=== PATIENT | male | born 1960 | race African-American/Black ===

== ENCOUNTER 2016-08-27 07:57 | Emergency (ER) | payer BC ==
[2016-08-27 08:03] VITALS: BP 146/100; PULSE 82; TEMP 99.2; BMI 24.9
[2016-08-27] MEDS ORDERED: KETOROLAC TROMETHAMINE 60 MG/2 ML VIAL IM ONE (08:10)
[2016-08-27] MEDS ORDERED: KETOROLAC TROMETHAMINE 60 MG/2 ML VIAL ONE (08:14)
--- NOTE | 2016-08-27 08:17 | PDOC ---
History of Present Illness - General Chief Complaint: Pain, Acute Stated Complaint: LEFT 1ST TOE PAIN Time Seen by Provider: 08/27/16 08:01 History Source: Patient Exam Limitations: No Limitations - History of Present Illness Initial Comments: 08/27/16 08:10 56y M hx of htn presents with L toe pain x 3 days. Pt states it started off with mild pain but has progressed to be so painful it is difficult for him to walk. 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 Denies any new shoes/boots. pt dnies any trauma, falls, injuries. The pain is localized to the lateral/bottom aspect of the L foot at the metatarsal, he denies any fever/chills, numbness/tingling, or readiation of the pain anywhere. it is worse with walking and when you touch it. pt states he had a similar episode last year that was treated (he remembers someone mentioning gout) and thinks this may be similar episode. pt denies f/c, n/v, cp, sob, back pain. Past History - Past Medical History Allergies/Adverse Reactions: Allergies Allergy/AdvReac Type Severity Reaction Status Date / Time No Known Allergies Allergy Verified 08/27/16 07:58 Home Medications: Ambulatory Orders Amlodipine Besylate [Norvasc -] 10 mg PO DAILY 07/21/15 Naproxen [Naprosyn -] 500 mg PO BID #14 tablet 08/27/16 HTN: Yes - Psycho/Social/Smoking Cessation Hx Anxiety: No Suicidal Ideation: No Smoking History: Never smoked Have you smoked in the past 12 months: No Hx Alcohol Use: Yes Drug/Substance Use Hx: No Substance Use Type: Alcohol Review of Systems - Review of Systems Able to Perform ROS?: Yes Comments:: 08/27/16 08:14 Constitutional - no reported Fever, Chills, HEENT: no reported vision changes, sore throat Abd/GI: no reported abd pain, nausea, vomiting, Musculskelatal - +L toe pain no reported back pain, joint swelling skin - no reported bruising, erythema, rash neurological: no reported numbness, focal weakness, tingling, hematologic: no reported anemia, easy bruising, easy bleeding *Physical Exam - Vital Signs Last Vital Signs Temp Pulse Resp BP Pulse Ox 99.2 F 82 16 146/100 98 08/27/16 07:57 08/27/16 07:57 08/27/16 07:57 08/27/16 07:57 08/27/16 07:57 - Physical Exam Comments: 08/27/16 08:15 GENERAL: The patient is awake, alert, and fully oriented, Nontoxic - in no acute distress. EXTREMITIES: +mild tenderness and swelling on Metatarsal of L 1st toe, slight warmth, able to rang toe without significant tenderness, no bruising/erythema. sensation intact distally, passive rom slightl painful of toe NEUROLOGICAL: No facial assymetry, Normal speech, antalgic gait SKIN: Warm, Dry, normal turgor, ED Treatment Course - RADIOLOGY Radiology Studies Ordered: Category Date Time Status FOOT-LEFT [RAD] Stat Radiology 08/27/16 08:09 Ordered Medical Decision Making - Medical Decision Making 08/27/16 08:17 suspect gout vs trauma will obtain xray to r/o fx will give NSAIDS, PMD fu 08/27/16 08:36 xrays neative for fracture on my read will give pt alleve 500mg BID for 5 days or until sypmtoms resolve will have pt fu with dr. collier return precautions were discussed I discussed the physical exam findings, ancillary test results and final diagnoses with the patient. I answered all of the patient's questions. The patient was satisfied with the care received and felt comfortable with the discharge plan and treatment plan. The patient will call their primary care physician within 24 hours to arrange follow-up and will return to the Emergency Department with any new, persistent or worsening symptoms. *DC/Admit/Observation/Transfer Diagnosis at time of Disposition: Pain of left great toe - Discharge Dispostion Disposition: HOME Condition at time of disposition: Improved Admit: No - Referrals Referrals: Shar Collier MD [Primary Care Provider] - - Patient Instructions Printed Discharge Instructions: DI for Gout Additional Instructions: Return to the emergency department immediately with ANY new, persistent or worsening symptoms. I suspect that you're pain may be due to gout. Please take Naproxen 500mg twice daily for the next 4-5 days or until symptoms resolve. You MUST call and follow up with your doctor tomorrow for further evaluation of your symptoms. Results were discussed with you. Please make sure your doctor reviews the results of your emergency evaluation. If you had any xrays during your visit, it was read preliminarily by myself, a Radiologist will review it and if there are any additional findings we will call you. Recommendations for specific foods or supplements include the following: High-purine vegetables. Studies have shown that vegetables high in purines do not increase the risk of gout or recurring gout attacks. A healthy diet based on lots of fruits and vegetables can include high-purine vegetables, such as asparagus, spinach, peas, cauliflower or mushrooms. You can also eat beans or lentils, which are moderately high in purines but are also a good source of protein. Organ and glandular meats. Avoid meats such as liver, kidney and sweetbreads, which have high purine levels and contribute to high blood levels of uric acid. Selected seafood. Avoid the following types of seafood, which are higher in purines than others: anchovies, bautista, sardines, mussels, scallops, trout, kalyan, mackerel and tuna. Alcohol. The metabolism of alcohol in your body is thought to increase uric acid production, and alcohol contributes to dehydration. Beer is associated with an increased risk of gout and recurring attacks, as are distilled liquors to some extent. The effect of wine is not as well-understood. If you drink alcohol, talk to your doctor about what is appropriate for you. Vitamin C. Vitamin C may help lower uric acid levels. Talk to your doctor about whether a 500-milligram vitamin C supplement fits into your diet and medication plan. Coffee. Some research suggests that moderate coffee consumption may be associated with a reduced risk of gout, particularly with regular caffeinated coffee. Drinking coffee may not be appropriate for other medical conditions. Talk to your doctor about how much coffee is right for you. Cherries. There is some evidence that eating cherries is associated with a reduced risk of gout attacks. Print Language: IRISH
== END 2016-08-27 09:02 | disposition home or self-care (01) ==
LOC: FER 07:57
PROC: 3E0233Z Introduction of Anti-inflammatory into Muscle, Percutaneous Approach (ICD-10-PCS; principal; 2016-08-27)
DX: M79.675 Pain in left toe(s) (principal); I10 Essential (primary) hypertension
CPT/HCPCS: 73630-TC-LT; 99281-25

== ENCOUNTER 2019-01-14 07:23 | Day surgery (SDC) | payer BC ==
[2019-01-13 15:04] VITALS: BMI 25.6
[2019-01-14 09:07] VITALS: TEMP 98
[2019-01-14 14:33] VITALS: BP 115/68; PULSE 54
== END 2019-01-14 09:58 | disposition home or self-care (01) ==
LOC: JASU-ENDO 07:23
PROVIDERS: ATTEND Internal Medicine Gastroenterology
PROC: 0DJD8ZZ Inspection of Lower Intestinal Tract, Via Natural or Artificial Opening Endoscopic (ICD-10-PCS; principal; 2019-01-14 08:45)
DX: Z12.11 Encounter for screening for malignant neoplasm of colon (principal)

== ENCOUNTER 2020-01-19 04:44 | Emergency (ER) | payer BC ==
--- NOTE | 2020-01-19 04:46 | PDOC ---
History of Present Illness - General Chief Complaint: Allergic Reaction Stated Complaint: ALLERGIC REACTION SINCE YESTERDAY MORNING Time Seen by Provider: 01/19/20 04:46 History Source: Patient, Spouse Exam Limitations: No Limitations - History of Present Illness Is this a multiple visit Asthma Patient?: No Timing/Duration: 24 hours Past History - Travel History Traveled outside of the country in the last 30 days: No Close contact w/someone who was outside of country & ill: No - Medical History Allergies/Adverse Reactions: Allergies Allergy/AdvReac Type Severity Reaction Status Date / Time No Known Allergies Allergy Verified 01/19/20 04:45 Home Medications: Ambulatory Orders Nifedipine ER [Procardia XL -] 30 mg PO DAILY 01/13/19 Docusate Sodium [Colace -] 100 mg PO TID 01/19/20 Irbesartan 300 mg PO DAILY 01/19/20 Levofloxacin [Levaquin] 500 mg PO DAILY 01/19/20 Oxybutynin Chloride 5 mg PO TID 01/19/20 Oxycodone HCl/Acetaminophen [Oxycodone-Acetaminophen 5-325] 1 each PO Q6H 01/19/20 Polyethylene Glycol 3350 [Miralax (For Bowel Prep) -] 17 gm PO DAILY #1 bottle 01/19/20 HTN: Yes - Psycho-Social/Smoking History Smoking History: Never smoked Have you smoked in the past 12 months: No Review of Systems - Review of Systems Able to Perform ROS?: No Is the patient limited Colombian proficient: No Constitutional: No: Symptoms Reported, See HPI, Chills, Diaphoresis, Fever, Loss of Appetite, Malaise, Night Sweats, Weakness, Weight Stable, Unintentional Wgt. Loss, Unexplained wgt Loss, Other HEENTM: No: Symptoms Reported, See HPI, Eye Pain, Blurred Vision, Tearing, Recent change in vision, Double Vision, Cataracts, Ear Pain, Ocular Prothesis, Ear Discharge, Nose Pain, Nose Congestion, Tinnitus, Nose Bleeding, Hearing Loss, Throat Pain, Throat Swelling, Mouth Pain, Dental Problems, Difficulty Swallowing, Mouth Swelling, Other Respiratory: No: Symptoms reported, See HPI, Cough, Orthopnea, Shortness of Nydia ath, SOB with Exertion, SOB at Rest, Stridor, Wheezing, Productive cough, Hemoptysis, Other Cardiac (ROS): No: Symptoms Reported, See HPI, Chest Pain, Edema, Irregular Heart Rate, Lightheadedness, Palpitations, Syncope, Chest Tightness, Other ABD/GI: No: Symptoms Reported, See HPI, Abdominal Distended, Abd. Pain w/ defecation, Blood Streaked Bowels, Constipated, Diarrhea, Difficulty Swallowing, Nausea, Poor Appetite, Poor Fluid Intake, Rectal Bleeding, Vomiting, Indigestion, Abdominal cramping, Tarry Stools, Other : Yes: Other (pt had cyberknife procedure for prostate cancer). No: Symptoms Reported, See HPI, Burning, Dysuria, Discharge, Frequency, Flank Pain, Hematuria, Incontinence, Pain, Urgency, Testicular Mass, Testicular Swelling, Lesions, Testicular Pain Musculoskeletal: No: Symptoms Reported, See HPI, Back Pain, Gout, Joint Pain, Joint Swelling, Muscle Pain, Muscle Weakness, Neck Pain, Joint Stiffness, Other Integumentary: No: Symptoms Reported, See HPI, Bruising, Change in Color, Change in Hair/Nails, Dryness, Erythema, Flushing, Lesions, Lumps, Pallor, Pruritus, Rash, Sweating, Other *Physical Exam - Physical Exam General Appearance: Yes: Nourished, Appropriately Dressed. No: Apparent Distress HEENT: positive: EOMI, MOLLY, Normal ENT Inspection, Normal Voice, Symmetrical, TMs Normal, Pharynx Normal Neck: positive: Trachea midline, Supple Respiratory/Chest: positive: Lungs Clear, Normal Breath Sounds Cardiovascular: positive: Regular Rhythm, Regular Rate, S1, S2 Gastrointestinal/Abdominal: positive: Normal Bowel Sounds, Flat, Soft Musculoskeletal: positive: Normal Inspection. negative: CVA Tenderness Extremity: positive: Normal Capillary Refill, Normal Inspection, Normal Range of Motion, Tender, Pelvis Stable Integumentary: positive: Dry, Warm, Other (pt has a slight peeling rash on his forehead and cheekbones; states that he may be allergic to his meds.) Medical Decision Making - Medical Decision Making 01/24/20 00:12 Pt has been on multiple meds. Through process of elimination we devised a strategy for pt to r/o which pill could be causing the problem: (Stop docusate red gel pill for constipation and replace with miralax Stop candesartan and call Dr. Collier for replacement and monitor blood pressure at home Stop OXYCODONE and replace with motrin --- WATCH FOR BLOOD IN THE URINE BAG Continue Nifedipine - OKAY Continue Levafloxacin - OKAY ?OXYBUTININ? ask surgeon if he needs this since he has the catheter in the bladder anyway. Ask if we can start this pill later once catheter is OUT) Pt medicated self with benadryl at home. We gave steroids. Pt has no hives on body and no angioedema. Pt has a phone appt with his urologist tomorrow and he can discuss rash with urologist. Pt is stable for d/c home. Discharge - Discharge Information Problems reviewed: Yes Clinical Impression/Diagnosis: Allergic reaction Condition: Stable Disposition: HOME - Admission No - Additional Discharge Information Prescriptions: Polyethylene Glycol 3350 [Miralax (For Bowel Prep) -] 17 gm PO DAILY #1 bottle - Follow up/Referral Referrals: Shar Collier MD [Primary Care Provider] - - Patient Discharge Instructions Patient Printed Discharge Instructions: DI for Adverse Drug Reaction -- Allergic Additional Instructions: Stop docusate red gel pill for constipation and replace with miralax Stop candesartan and call Dr. Collier for replacement and monitor blood pressure at home Stop OXYCODONE and replace with motrin --- WATCH FOR BLOOD IN THE URINE BAG Continue Nifedipine - OKAY Continue Levafloxacin - OKAY ?OXYBUTININ? ask surgeon if he needs this since he has the catheter in the bladder anyway. Ask if we can start this pill later once catheter is OUT - Post Discharge Activity
[2020-01-19 04:57] VITALS: BP 146/83; PULSE 88; BMI 26.7
[2020-01-19] MEDS ORDERED: DEXAMETHASONE SOD PHOSPHATE 10 MG/1 ML VIAL ONE (04:59)
[2020-01-19] MEDS ORDERED: DEXAMETHASONE LIQUID 0.5 MG/5 ML PO ONE (05:11)
[2020-01-19 05:14] VITALS: TEMP 100
[2020-01-19] MEDS ORDERED: MAG HYDROX/AL HYDROX/SIMETH 30 ML UNIT-DOSE CUP ONE (05:20)
[2020-01-19] MEDS ORDERED: MAG HYDROX/AL HYDROX/SIMETH 30 ML UNIT-DOSE CUP PO ONE (05:33)
== END 2020-01-19 05:34 | disposition home or self-care (01) ==
LOC: FER 04:44
DX: T78.40XA Allergy, unspecified, initial encounter (principal)
CPT/HCPCS: 99283-25

== ENCOUNTER 2024-12-21 14:11 | Emergency (ER) | payer BC ==
[2024-12-21 14:41] VITALS: BP 150/87; PULSE 60; RESP 18; TEMP 98.4; BMI 23.7
== END 2024-12-21 15:07 | disposition home or self-care (01) ==
LOC: FER 14:11
DX: M76.32 Iliotibial band syndrome, left leg (principal); M70.62 Trochanteric bursitis, left hip; M25.552 Pain in left hip; M79.652 Pain in left thigh
CPT/HCPCS: 99283-25